=== PATIENT | male | born 1945 | race Two or more races ===

== ENCOUNTER 2023-10-11 09:12 | Day surgery (SDC) | payer OTHER ==
[~2023-10-11] VITALS: Ht 177.8 cm; Wt 81.4 kg
[~2023-10-11 09:12] MED LIST: GABA-1181 PO; LEVO150 PO; LORA-1000 PO; LUBI24CA2 PO; QUET25TA PO; RIVA20TA PO; SODIUM CHLORIDE 0.9% 1,000 ML ONE; TAMS0.4C94 PO
[2023-10-11] MEDS: SODIUM CHLORIDE 0.9% 1,000 ML IV ONE (09:58)
[2023-10-11] MEDS ORDERED: LIDOCAINE/PF 2% 5 ML VIAL IM ONE (12:00)
[2023-10-11] MEDS ORDERED: PROPOFOL 1% 20 ML VIAL IVP ONE (12:00)
[2023-10-11] MEDS ORDERED: OXYGEN THERAPY IH SCH (20:00)
== END 2023-10-11 14:00 | disposition home or self-care (01) ==
LOC: SURGERY 09:12
PROVIDERS: ATTEND Specialist
DX: D50.9 Iron deficiency anemia, unspecified (principal); K29.50 Unspecified chronic gastritis without bleeding; K25.9 Gastric ulcer, unspecified as acute or chronic, without hemorrhage or perforation; K57.30 Diverticulosis of large intestine without perforation or abscess without bleeding; K40.90 Unilateral inguinal hernia, without obstruction or gangrene, not specified as recurrent; F31.9 Bipolar disorder, unspecified; G47.33 Obstructive sleep apnea (adult) (pediatric); Z79.899 Other long term (current) drug therapy; Z98.890 Other specified postprocedural states
CPT/HCPCS: 45380; 43239; 88305; 88312; 88313; C1769; J2704; J3490; J7030